=== PATIENT | male | born 1975 | race African-American/Black ===

== ENCOUNTER 2020-08-07 21:04 | Emergency (ER) | payer BC ==
[~2020-08-07] VITALS: Ht 182.9 cm; Wt 78.0 kg
[2020-08-07 21:20] VITALS: BP 122/77
== END 2020-08-07 23:00 | disposition home or self-care (01) ==
LOC: ER 21:04
DX: S16.1XXA Strain of muscle, fascia and tendon at neck level, initial encounter (principal); S46.919A Strain of unspecified muscle, fascia and tendon at shoulder and upper arm level, unspecified arm, initial encounter; F17.210 Nicotine dependence, cigarettes, uncomplicated; V43.52XA Car driver injured in collision with other type car in traffic accident, initial encounter; Y93.89 Activity, other specified; Y92.488 Other paved roadways as the place of occurrence of the external cause
CPT/HCPCS: 93005; 99283